=== PATIENT | female | born 1940 | race Caucasian/White ===

== ENCOUNTER 2017-01-20 05:49 | Day surgery (SDC) | payer OTHER ==
[2017-01-19 14:58] VITALS: Ht 162.6 cm; Wt 57.3 kg
[~2017-01-20] VITALS: Ht 162.6 cm; Wt 57.3 kg
[2017-01-20] VITALS (9 sets, daily range): BP systolic 99–125; BP diastolic 53–64; PULSE 50–58; RESP 10–18
--- NOTE | 2017-01-20 01:14 | HP ---
DATE OF ADMISSION: 01/20/2017 CHIEF COMPLAINT: "Difficulty seeing with my eyes, right worse than the left." HISTORY OF PRESENT ILLNESS: This is a 76-year-old lady, who has been having progressive loss of vision in both eyes, right worse than the left. It has gotten to the point that it is interfering with her activities of daily living. She has had a lot of halos and glare, and has difficulty seeing signs and watching TV. She requests surgery to improve this condition. PAST MEDICAL HISTORY: Significant for back and osteopenia. MEDICATIONS: Include Actonel and aspirin. PAST SURGICAL HISTORY: Significant for hysterectomy and appendectomy. ALLERGIES: NO KNOWN DRUG ALLERGIES. REVIEW OF SYSTEMS: She denies having any fever, chills, nausea, vomiting, diarrhea, constipation, shortness of breath, chest pain, dysuria, dyspnea, weakness or numbness in the extremities. She has occasional headache. PHYSICAL EXAMINATION: GENERAL: She is a well-developed, thin lady, in no acute distress. VITAL SIGNS: Temperature is 97.5, pulse 72, respirations 16, blood pressure 125 /70, weight about 125 pounds. HEAD: Normocephalic, atraumatic. NECK: Supple, no lymphadenopathy. Normal thyroid. EAR, NOSE, AND THROAT: Within normal limits. EYES: Best corrected visual acuity is 20/60 in the right, 20/40 on the left. The SHAVON exam drops the vision down to 2100 and 20/60 on the left. The pupil examination is 4 mm, 2+, reactive to light, with no afferent pupillary defect. Extraocular muscles are intact. External and slit-lamp examination are within normal limits. Intraocular pressure is 19 on both sides. Dilated examination shows 2+ nuclear sclerosis on both sides and 2+ posterior subcapsular cataract, right worse than the left. The funduscopic examination shows normal macula, discs, vessels, and periphery. CHEST: Lungs are clear to auscultation and percussion. HEART: Regular rate and rhythm. ABDOMEN: Soft, nontender, nondistended, positive bowel sounds. EXTREMITIES: Essentially normal with no cyanosis, clubbing, or edema. NEUROLOGIC: Grossly intact. IMPRESSION: 1. Cataracts. 2. History of headache. 3. Osteopenia. RECOMMENDATIONS: Risks, complications, and alternatives were explained to the patient, which included infection, bleeding, loss of vision, loss of eye, from anesthesia, need for a second surgery, retinal detachment, irregular pupil , irregular corneal ptosis, globe perforation and diplopia, and glaucoma. The patient understands these risks and would like to go ahead with the surgery. Dictated By: ELIEZER FONG/FLORINDA Conf#: [id number] DID#: [id number] MTDD
[~2017-01-20 05:49] MED LIST: ACETAZOLAMIDE (SR) 500 MG CAP PO ONE; CIPROFLOXACIN 0.3% 2.5 ML OPH OPER SCH; LIDOCAINE 3.5% GEL TUBE OPER SCH; PHENYLephrine 10% 5 ML OPH OPER SCH; PHENYLephrine 2.5% 15 ML OPH OPER SCH; PROPARACAINE 0.5% 15 ML OPH OPER SCH; TROPICAMIDE 1% 15 ML OPH OPER SCH
[2017-01-20] MEDS ORDERED: PROPARACAINE 0.5% 15 ML OPH OPER SCH (07:00)
[2017-01-20] MEDS ORDERED: ASPI81TA3 PO (07:06)
[2017-01-20] MEDS ORDERED: SOLI5TAB5 PO (07:06)
[2017-01-20] MEDS ORDERED: ACT35 PO (07:06)
[2017-01-20] MEDS ORDERED: CEFAZOLIN 1 GM INJ ONE (07:37)
[2017-01-20] MEDS ORDERED: DEXAMETHASONE 4 MG/ML 1 ML INJ ONE (07:37)
[2017-01-20] MEDS ORDERED: LIDOCAINE 1% (STERILE-PAK) 30 ML INJ ONE (07:37)
[2017-01-20] MEDS ORDERED: LACTATED RINGER'S 1,000 ML IV SCH (08:00)
[2017-01-20] MEDS ORDERED: FENTAnyl 50 MCG/ML VIAL IV PRN ×2 (08:00)
[2017-01-20] MEDS ORDERED: hydrALAzine 20 MG INJ IV PRN (08:00)
[2017-01-20] MEDS ORDERED: LABETALOL HCL 20MG INJ IV PRN (08:00)
[2017-01-20] MEDS ORDERED: ONDANSETRON 4 MG INJ IV PRN (08:00)
[2017-01-20] MEDS ORDERED: EPHEDrine SULFATE 50 MG/5 ML SYG IV PRN (08:00)
[2017-01-20] MEDS ORDERED: LIDOCAINE 4% (MPF) 5 ML INJ ONE (08:07)
[2017-01-20] MEDS ORDERED: MIDAZOLAM 1 MG/ML 2 ML INJ ONE (08:17)
[2017-01-20] MEDS ORDERED: FENTAnyl 50 MCG/ML VIAL ONE (08:17)
[2017-01-20] MEDS ORDERED: BALANCED SALT SOLN 500 ML OPH IRRIG IRR ONE (08:43)
[2017-01-20] MEDS ORDERED: LIDOCAINE 1% (MPF) 30 ML INJ INJ ONE (08:44)
[2017-01-20] MEDS ORDERED: DEXAMETHASONE 4 MG/ML 1 ML INJ IV ONE (08:46)
[2017-01-20] MEDS ORDERED: CEFAZOLIN 1 GM INJ IVPB ONE (08:46)
--- NOTE | 2017-01-20 09:49 | OPR ---
DATE OF OPERATION: 01/20/2017 PREOPERATIVE DIAGNOSIS: Cataract of the right eye. POSTOPERATIVE DIAGNOSIS: Cataract of the right eye. SURGEON: Shashank Owen MD INVESTIGATOR VICE: None. ANESTHESIOLOGIST: Chelsey Zepeda MD PROCEDURE: Extracapsular cataract extraction with intraocular lens implantation with phacoemulsific ation technique with the Eddie lens [id number], 27.5 diopter right eye. COMPLICATIONS: None. ESTIMATED BLOOD LOSS: Less than 1 mL. INDICATION: This is a 76-year-old lady who had pannus progressive loss of vision in both eyes, righ t worse than the left. It has gotten to the point of interfering with activities of daily living. S he requests surgery to focus condition. DESCRIPTION OF PROCEDURE: Patient was taken to the operating room in stable condition and was place d in the heart and lung monitors and was monitored throughout the whole case. The patient was prepped and draped in a sterile fashion for surgery and the wire lid speculum was pl aced in the conjunctival fornices. Next, the subconjunctival injection of 1% lidocaine was given in feriorly and then the paracentesis port was made at 2 o'clock position with the supersharp. Next, w ith the use of a keratome the anterior chamber was entered through the superior supratemporal limbo corneal incision and then Healon was injected into the anterior chamber. With the use of a cystotom e a capsulorrhexis was performed in a curvilinear fashion and then hydrodissection hydrodelineation was done with a balanced-salt solution. Next, the phaco tip was entered into the anterior chamber a nd the nucleus was phacoemulsified using a divide and conquer technique with the use of a second ins trument. Next, with the use of the irrigation aspiration unit, the cortical material was removed an d the posterior capsule was gently polished. Next, Healon was injected into the anterior chamber ag ain and then the Eddie lens 27.5 diopter was placed in the capsular bag without any complication. T he haptics were placed at 3 o'clock and 9 o'clock position, and then the Healon was taken out of the eye with an irrigation aspiration unit. The wound was closed with a 10-0 suture and the wound inte grity was checked and there was no leakage was noted. Subconjunctival injection of Ancef and Decadr on was given inferiorly and then the wire lid speculum was removed. The drapes were removed, and th e eye was patched and a shield placed over it and the patient was taken to recovery room in stable c ondition. Dictated By: SHASHANK FONG/FLORINDA Conf#: [id number] DID#: [id number]
== END 2017-01-20 10:32 | disposition home or self-care (01) ==
LOC: SDS 05:49
PROVIDERS: ATTEND Ophthalmology
DX: H25.041 Posterior subcapsular polar age-related cataract, right eye (principal)
CPT/HCPCS: 66984; J0690; J1100; J2250; J3010; V2632

== ENCOUNTER 2017-03-13 05:26 | Day surgery (SDC) | payer OTHER ==
--- NOTE | 2017-03-12 21:57 | PREOPHP ---
DATE OF ADMISSION: 03/13/2017 CHIEF COMPLAINT: "I'm having difficulty seeing with both eyes." HISTORY OF PRESENT ILLNESS: This is a 77-year-old lady who has been having painless progressive loss of vision in both eyes. She underwent cataract extraction with good result in the right eye. Now she requests to have the left eye done since it is causing a lot of imbalance for her. She requests to have surgery to improve this condition. PAST MEDICAL HISTORY: Significant for back pain and osteopenia. PAST SURGICAL HISTORY: Significant for appendectomy, hysterectomy, and cataract extraction on the right. MEDICATIONS: Includes: 1. Actonel. 2. Aspirin. 3. VESIcare. 4. Calcium. 5. Vitamin D. ALLERGIES: NO KNOWN DRUG ALLERGIES. REVIEW OF SYSTEMS: She denies any fever, chills, nausea, vomiting, diarrhea, constipation, shortness of breath, chest pain, dysuria, dyspnea. PHYSICAL EXAMINATION: VITAL SIGNS: Temperature is 97.5, pulse is 72, respirations 16, blood pressure 125/70. She is about 125 pounds. GENERAL: She is a well-developed, well-nourished lady in no acute distress, alert and oriented x3. HENT: Normocephalic, atraumatic. Ear, nose, and throat are within normal limits. EYES: Best corrected visual acuity is 20/25 on the right. The best corrected in the left eye is 20/50. The pupils are 4 mm, 2+ reactive to light with no afferent pupillary defect. Extraocular muscles are intact. Intraocular pressure is 14 in both eyes. Dilated exam shows 3+ nuclear sclerosis with 2+ posterior subcapsular cataract on the left. The right eye has a posterior chamber intraocular lens. Funduscopic examination shows cup to disk of 0.3 with normal macula, disk, vessels, and periphery. NECK: Supple with no lymphadenopathy. Normal thyroid. LUNGS: Clear to auscultation and percussion. HEART: Regular rate and rhythm. ABDOMEN: Soft, nontender, nondistended, positive bowel sounds. EXTREMITIES: Essentially normal with no cyanosis, clubbing, or edema. NEUROLOGIC: Grossly intact. IMPRESSION: 1. Cataracts. 2. Pseudophakia. 3. Osteopenia. 4. Back pain. RECOMMENDATIONS: Risks, benefits, complications, and alternatives were explained to the patient which include infection, bleeding, loss of vision, loss of eye, from anesthesia, need for second surgery, retinal detachment , irregular pupil, irregular cornea, ptosis, globe perforation, diplopia, and glaucoma. The patient understands these risks and would like to go ahead with the surgery. Dictated By: ELIEZER FONG/FLORINDA Conf#: [id number] DID#: [id number] MTDD
[2017-03-13] VITALS (9 sets, daily range): BP systolic 112–138; BP diastolic 62–72; PULSE 52–59; RESP 10–22; Ht 160 cm; Wt 57.5 kg
[~2017-03-13] VITALS: Ht 160 cm; Wt 57.5 kg
[~2017-03-13 05:26] MED LIST changes: -ACETAZOLAMIDE (SR) 500 MG CAP PO ONE; +ACT35 PO; +ASPI81TA3 PO; -CIPROFLOXACIN 0.3% 2.5 ML OPH OPER SCH; -LIDOCAINE 3.5% GEL TUBE OPER SCH; -PHENYLephrine 10% 5 ML OPH OPER SCH; -PHENYLephrine 2.5% 15 ML OPH OPER SCH; -PROPARACAINE 0.5% 15 ML OPH OPER SCH; +SOLI5TAB5 PO; -TROPICAMIDE 1% 15 ML OPH OPER SCH
[2017-03-13] MEDS ORDERED: PROPARACAINE 0.5% 15 ML OPH OPER SCH (06:00)
[2017-03-13] MEDS ORDERED: TROPICAMIDE 1% 15 ML OPH OPER SCH (06:00)
[2017-03-13] MEDS ORDERED: CIPROFLOXACIN 0.3% 2.5 ML OPH OPER SCH (06:00)
[2017-03-13] MEDS ORDERED: PHENYLephrine 2.5% 15 ML OPH OPER SCH (06:00)
[2017-03-13] MEDS ORDERED: LIDOCAINE 3.5% GEL TUBE OPER SCH (06:00)
[2017-03-13] MEDS ORDERED: DEXAMETHASONE 4 MG/ML 1 ML INJ ONE (06:27)
[2017-03-13] MEDS ORDERED: EPINEPHrine 1 MG INJ ONE (06:27)
[2017-03-13] MEDS ORDERED: CEFAZOLIN 1 GM INJ ONE (06:27)
[2017-03-13] MEDS ORDERED: SODIUM HYALURONATE 14 MG/ML SYG ONE (06:30)
[2017-03-13] MEDS ORDERED: LIDOCAINE 1% (MPF) 10 ML INJ ONE (06:32)
[2017-03-13] MEDS ORDERED: BALANCED SALT SOLN 500 ML OPH IRRIG ONE (07:00)
[2017-03-13] MEDS ORDERED: LIDOCAINE 1% (MPF) 10 ML INJ INJ ONE (07:05)
[2017-03-13] MEDS ORDERED: CEFAZOLIN 1 GM INJ INJ ONE (07:05)
[2017-03-13] MEDS ORDERED: SODIUM HYALURONATE 10 MG/ML SYG IO ONE (07:05)
[2017-03-13] MEDS ORDERED: DEXAMETHASONE 4 MG/ML 1 ML INJ INJ ONE (07:05)
[2017-03-13] MEDS ORDERED: MIDAZOLAM 1 MG/ML 2 ML INJ ONE (07:59)
[2017-03-13] MEDS ORDERED: DIPHENHYDRAMINE 50 MG INJ IV PRN (08:00)
[2017-03-13] MEDS ORDERED: MEPERIDINE 25 MG INJ IV PRN (08:00)
[2017-03-13] MEDS ORDERED: MIDAZOLAM 1 MG/ML 2 ML INJ IV PRN (08:00)
[2017-03-13] MEDS ORDERED: FENTAnyl 50 MCG/ML VIAL IV PRN ×2 (08:00)
[2017-03-13] MEDS ORDERED: ONDANSETRON 4 MG INJ IV PRN (08:00)
[2017-03-13] MEDS ORDERED: METOCLOPRAMIDE 10 MG INJ IV PRN (08:00)
--- NOTE | 2017-03-13 09:46 | OPR ---
DATE OF OPERATION: 03/13/2017 PREOPERATIVE DIAGNOSIS: Cataract of the left eye. POSTOPERATIVE DIAGNOSIS: Cataract of the left eye. PROCEDURE: Extracapsular cataract extraction with intraocular lens implantation using phacoemulsification technique using the Bausch and Lomb lens model LI61AO, power is 27.5 diopters, left eye. COMPLICATIONS: None. ESTIMATED BLOOD LOSS: Less than 150. ANESTHESIA: Dr. Carrasco. INDICATIONS: This is a 77-year-old lady with loss of vision in both eyes. She has undergone cataract extraction with good results in the right eye. Now she requests her left eye be done because it is causing a lot of imbalance. She requested to have surgery to improve this condition. DESCRIPTION OF PROCEDURE: Patient was taken to the operating room in stable condition, was placed on a heart and lung monitor and was monitored throughout the whole case. Next, the patient was prepped and draped in a sterile fashion for surgery. A lid speculum was placed in the conjunctival fornices. Next, subconjunctival injection of 1% lidocaine was given inferiorly and then with the use of a supersharp, a paracentesis port was made at 5 o'clock position. Next with the use of a keratome, the anterior chamber was entered through the superotemporal at the limbal area which was then used for removing the cataract. Next, the needle was injected into the anterior chamber and then with the use of a cystotome, a capsulorrhexis was performed in a curvilinear fashion. Next, a balanced-salt solution on a cannula was used for hydrodissection and hydrodelineation, and then the phaco tip was entered into the anterior chamber and the nucleus was phacoemulsified using a divide-and- conquer technique with a second instrument. Next, with the use of an irrigation /aspiration unit, the cortical material was removed and the posterior capsule was polished. Next, the Healon was injected into the anterior chamber again and the Bausch and Lomb lens 27.5 diopter was delivered into the capsular bag without any complication. The haptics were placed at 12 o'clock and 6 o'clock positions and then the next day, the Healon was removed with the irrigation/ aspiration unit. After using the balanced salt solution to strengthen the wound , next the 10-0 nylon suture was placed and the wound integrity was checked and there was no leakage noted. Subconjunctival injection of Ancef and Decadron was given inferiorly. Next, the lid speculum and the drapes were removed. Topical antibiotic was placed on to the eye. The eye was patched and the shield placed over. The patient was taken to the recovery room in stable condition and tolerated the procedure well. There were no complications. Dictated By: ELIEZER FONG/FLORINDA Conf#: [id number] DID#: [id number] MTDD
[2017-03-13] MEDS ORDERED: ACETAZOLAMIDE (SR) 500 MG CAP PO ONE (16:00)
== END 2017-03-13 09:45 | disposition home or self-care (01) ==
LOC: SDS 05:26
PROVIDERS: ATTEND Ophthalmology
DX: H26.9 Unspecified cataract (principal)
CPT/HCPCS: 66984; J0171; J0690; J1100; J2250; V2632

== ENCOUNTER 2018-01-09 09:59 | Day surgery (SDC) | END 2018-01-09 17:12 | disposition home or self-care (01) ==